=== PATIENT | female | born 1940 | race Caucasian/White ===

== ENCOUNTER → 2017-06-26 | Outpatient (CLI) | payer MEDICARE, OTHER ==
--- NOTE | 2017-06-26 14:33 | Diagnostic Imaging Report ---
INDICATION: Abnormal mammogram and palpable abnormality in the left breast. TECHNIQUE: Multiple Real-time grayscale images were obtained over the 12 to 5 o'clock position of the left breast. FINDINGS: In the 12 o'clock position of the left breast 1 cm from the nipple, there is an anechoic cyst measuring 1.3 x 0.7 x 0.9 cm. In the 5 o'clock position 3 cm from the nipple, there is a second anechoic cyst measuring 0.7 x 0.5 x 0.7 cm. No other discrete solid or cystic masses are appreciated. IMPRESSION: Two anechoic cysts in the left breast. The larger appears to correspond with the abnormality on mammography. ACR BI-RADS Category 2: Benign findings. Dictated by: Dictated on workstation # [id number]
--- NOTE | 2017-06-26 15:30 | Diagnostic Imaging Report ---
INDICATION: Left breast palpable abnormality. COMPARISON: 04/05/2013, 03/30/2012, and 03/17/2011. TECHNIQUE: Digital diagnostic mammography was performed bilaterally with a Computer Aided Detection (CAD) system. FINDINGS: There is a new well circumscribed density in the retroareolar region of the left breast. There is a nodular density in the subareolar region of the right breast which is slightly smaller. There are a few scattered benign type calcifications. There is no other dominant mass, spiculated lesion, or suspicious calcification identified. The skin, nipples, and axillae are unremarkable. Ultrasound was performed of the new density in the left breast. This proved to be a benign cyst. IMPRESSION: Benign findings. ACR BI-RADS Category 2: Benign findings. Result letter will be mailed to the patient. Note: At least 10% of breast cancer is not imaged by mammography. Dictated by: Dictated on workstation # [id number]
== END ==
LOC: RAD 13:20
PROVIDERS: ATTEND Internal Medicine
DX: N60.12 Diffuse cystic mastopathy of left breast (principal)
CPT/HCPCS: 76641; 77066

== ENCOUNTER 2019-06-21 09:56 | Outpatient (RCR) | payer MEDICARE, OTHER | END 2019-09-19 | disposition home or self-care (01) | LOC: CARD 09:56 | PROVIDERS: ATTEND Internal Medicine | DX: R55 Syncope and collapse (principal); Z53.8 Procedure and treatment not carried out for other reasons ==

== ENCOUNTER 2019-06-27 14:44 | Outpatient (RCR) | payer MEDICARE, OTHER | END 2019-09-25 | disposition home or self-care (01) | LOC: CARD 14:44 | PROVIDERS: ATTEND Internal Medicine | DX: R55 Syncope and collapse (principal) ==